=== PATIENT | male | born 1965 | race Two or more races ===

== ENCOUNTER 2016-11-29 08:40 | Emergency (ER) | payer MEDICAID, OTHER ==
[2016-11-29 09:05] VITALS: RESP 18
--- NOTE | 2016-11-29 09:07 | EDPHY ---
HPI/HX/ROS/PE/MDM Narrative: CHIEF COMPLAINT: Left gluteal abscess HISTORY OF PRESENT ILLNESS: The patient is a 51 y/o male arriving in custody of [facility] from the nursing home, who arrives for evaluation of a left gluteal abscess for one week. He has no prior history of abscesses. He is unsure what caused the abscess to develop but it worsened after he repeatedly scratched it. He did have a subjective fever, but denies vomiting, radiculopathy, weakness, paresthesias, or other symptoms. He was seen twice by a nurse and placed on Bactrim last night 11/28/16. The nurse cleaned the site but did not preform an I &D. He denies a history of diabetes and does not currently use any steroids. No chills, chest pain, shortness of breath, palpitations, vomiting, diarrhea, urinary complaints, headache, lightheadedness. REVIEW OF SYSTEMS: Aside from elements discussed in the HPI, a comprehensive 10-point review of systems was reviewed and is negative. PAST MEDICAL HISTORY: Hypertension, low arrhythmic heart rate, asthma, depression. SOCIAL HISTORY: In [facility] custody, living in nursing home, no recent drugs or alcohol VITAL SIGNS: Reviewed by me GENERAL: Well-developed, well-nourished, quiet. Reports moderate/severe pain in left buttock. HEENT: Benign exam. LUNGS: Clear to auscultation bilaterally, no wheezes, rhonchi or rales. CARDIAC: Regular rate and rhythm, no rubs, murmurs or gallops. ABDOMEN: Soft, nontender, nondistended, bowel sounds normal. BACK: No CVA tenderness. EXTREMITIES: No trauma. No edema. Range of motion is normal throughout. NEURO: Alert and oriented, grossly nonfocal. SKIN: Left gluteal baseball sized ([id number]) firm, tender abscess with induration , some drainage and weeping. Otherwise warm and dry, no rash. Abscess in is gluteal area only, not perirectal or perianal. PSYCHIATRIC: Normal mentation, no agitation. Portions of this note were transcribed by a medical supervisor. I personally performed a history, physical exam, medical decision making, and confirmed accuracy of information the transcribed note. ED Course: The patient s a 51 y/o male in custody with [employer] presenting with a one week history of worsening pain at a left gluteal abscess. On exam there is a spontaneously draining baseball sized abscess. Due to size and depth, we will consult surgery. 1mg IV Dilaudid and 1L IV NS administered. 0925: Consulted with Dr. Escobar, general surgeon. Since the abscess is spontaneously draining, he feels it's appropriate to attempt an aggressive I&D in the ED. Procedure: Incision and Drainage abscess. The patient's abscess was located on the left gluteal region. Risks, benefits, alternatives discussed with the patient and consent obtained. The area was prepped and draped in sterile fashion. The patient received local anesthesia with 1% Sensorcaine with epinephrine. The abscess was incised with a #11 blade and copious amounts of thick, caseated, bloody, purulent drainage was expressed. Culture swab sent to lab. The wound was packed. The patient tolerated the procedure well. The procedure was performed by myself. 1130: 1g IV Vancomycin administered. Patient will be discharged with recommendation to continued Bactrim and use ibuprofen as needed for pain. Will plan on scheduled return in 2 days for wound reassessment and repacking. He and officer express understanding with this plan , return precautions provided. MDM: diff dx considered included abscess, mrsa, mssa, deep space infection, per-anal abscess, sepsis, bacteremia. - Data Points Medications Given: Discontinued Medications Hydromorphone HCl (Dilaudid) 1 mg IVP EDNOW ONE Stop: 11/29/16 09:16 Last Admin: 11/29/16 10:00 Dose: 1 mg Sodium Chloride (Ns) 1,000 mls @ 0 mls/hr IV ONCE ONE; Wide Open PRN Reason: Protocol Stop: 11/29/16 09:16 Last Admin: 11/29/16 10:01 Dose: 1,000 mls Vancomycin/Sodium Chloride (Vancomycin 1 Gm (Premix)) 250 mls @ 250 mls/hr IV EDNOW ONE PRN Reason: Protocol Stop: 11/29/16 11:42 Last Admin: 11/29/16 10:58 Dose: 250 mls Microbiology Results: MICROBIOLOGY 11/29/16 10:33 Hand - Swab Gram Stain - Final 11/29/16 10:33 Hand - Swab Wound Culture - Final MRSA General Time Seen by Provider: 11/29/16 08:43 Initial Vital Signs: Initial Vital Signs Temperature (C) 36.7 C 11/29/16 08:50 Heart Rate 74 11/29/16 08:50 Respiratory Rate 18 11/29/16 08:50 Blood Pressure 116/82 H 11/29/16 08:50 O2 Sat (%) 96 11/29/16 08:50 O2 Delivery Mode Room Air Allergies/Adverse Reactions: No Known Allergies Allergy (Verified 06/20/15 17:26) Home Medications: Medication Instructions Recorded Lisinopril 04/28/15 Synthroid 04/28/15 Citalopram [CeleXA 20 MG] 20 mg PO DAILY #7 tab 04/29/15 Atorvastatin Calcium 20 mg PO DAILY #7 tablet 05/11/15 Atorvastatin Calcium [Lipitor] 40 mg PO 05/11/15 Clopidogrel Bisulfate [Plavix] 75 mg PO DAILY 05/11/15 Levothyroxine [Synthroid 100 mcg 100 mcg PO DAILY06 #7 tab 05/11/15 (*)] Departure - Departure Disposition: Law Enforcement/Court/[facility] Clinical Impression: Abscess, gluteal, left Condition: Good Instructions: Sulfamethoxazole/Trimethoprim (By mouth), Abscess (ED) Additional Instructions: 1. Continue taking Bactrim as prescribed. Make sure you complete your entire prescription without fail. 2. Return to the emergency department in 2 days for recheck of your abscess. 3. Keep a dressing over the area that was packed. 4. When you return for recheck, your abscess may need to be repacked. 5. Return to the ED if you experience fever, dramatic increase in redness or swelling, severe pain, or other worsening of condition Referrals: NONE *PRIMARY CARE P,. [Primary Care Provider] - As per Instructions [facility],. [Clinic] - As per Instructions Report Scribed for: Taylor Lopez Report Scribed by: Michelle Zuniga Date of Report: 11/29/16 Time of Report: 10:29
[2016-11-29] MEDS ORDERED: NS 1,000 ML IV ONE (09:15)
[2016-11-29] MEDS ORDERED: HYDROmorphONE/DILAUDID 1 MG/ML SYR IVP ONE (09:15)
[2016-11-29] MEDS ORDERED: VANCOMYCIN HCL/NORMAL SALINE 250 ML IV ONE (10:43)
[2016-11-29 12:17] VITALS: BP 122/78; PULSE 64; TEMP 98.6; O2SAT 95
== END 2016-11-29 12:15 ==
PROC: 0H98XZZ Drainage of Buttock Skin, External Approach (ICD-10-PCS; principal; 2016-11-29)
DX: L02.31 Cutaneous abscess of buttock (principal); I10 Essential (primary) hypertension; J45.909 Unspecified asthma, uncomplicated; E86.9 Volume depletion, unspecified
CPT/HCPCS: 96365; J1170; J3370

== ENCOUNTER → 2017-07-06 | Outpatient (CLI) | payer OTHER | LOC: BHLMT 10:00 | PROVIDERS: ATTEND Internal Medicine Interventional Cardiology | DX: I71.9 Aortic aneurysm of unspecified site, without rupture (principal) | CPT/HCPCS: 93306-PO ==

== ENCOUNTER → 2018-08-28 | Outpatient (CLI) | payer OTHER, MEDICAID | LOC: BHLMT 13:15 | PROVIDERS: ATTEND Internal Medicine Cardiovascular Disease | DX: I42.9 Cardiomyopathy, unspecified (principal) | CPT/HCPCS: 93306-PO ==